=== PATIENT | female | born 1990 | race Caucasian/White ===

== ENCOUNTER 2024-02-18 21:39 | Emergency (ER) | payer OTHER, SELFPAY ==
--- NOTE | 2024-02-18 21:44 | DI.RAD.S_ITS ---
PROCEDURE: XR HAND RT MIN 3V INDICATIONS: bite by dog with multiple lacerations TECHNIQUE: 3 views of the hand(s) acquired. COMPARISON: None. FINDINGS: Bones: No fractures or dislocations. Carpal bones are normally aligned. No suspicious bony lesions. Soft tissues: No suspicious soft tissue calcifications. Tiny soft tissue laceration seen between the 3rd and 4th digits and adjacent to the 5th digit without underlying radiodense foreign body. IMPRESSION: No fracture or foreign body. Dictated by: Alessandra Stuart M.D. on 02/18/2024 at 23:11 Approved by: Alessandra Stuart M.D. on 02/18/2024 at 23:11
[2024-02-18 21:51] VITALS: BP 117/73; PULSE 86; RESP 17; TEMP 36.6; O2SAT 100
--- NOTE | 2024-02-18 23:18 | ED_ITS ---
HPI - Animal Bite General Chief Complaint: Animal Bite Stated Complaint: dog bite to right hand Time Seen by Provider: 02/18/24 23:09 Source: patient Mode of arrival: Ambulatory History of Present Illness HPI narrative: Patient is a 34-year-old healthy female who presents today with right hand dog bite. She reports that she was breaking up her dogs. He is right-hand dominant she has a cut between 3rd and 4th finger and the side of the 5th finger on the palm. She has a little bit and numbness no weakness. Dogs are up-to-date on all other immunizations Related Data Previous Rx's Medication Instructions Recorded amoxicillin 875 mg-potassium 1 tab PO BID #14 tabs 02/18/24 clavulanate 125 mg tablet Allergies Allergy/AdvReac Type Severity Reaction Status Date / Time No Known Drug Allergies Allergy Verified 02/18/24 21:50 Patient History Social History Smoking Status: Never smoker Smoking Status: Never smoker alcohol intake frequency: a few times a week Substance Use Type: does not use Exam Initial Vital Signs Initial Vital Signs: Vital Signs Temperature 97.8 F 02/18/24 21:51 Pulse Rate 86 02/18/24 21:51 Respiratory Rate 17 02/18/24 21:51 Blood Pressure 117/73 02/18/24 21:51 Pulse Oximetry 100 02/18/24 21:51 Oxygen Delivery Method Room Air 02/18/24 21:51 GENERAL: Well-appearing, well-nourished and in no acute distress. CARDIOVASCULAR: peripheral pulses in tact, cap refill <2 sec RESPIRATORY: No respiratory distress, speaks in full sentences without difficulty EXTREMITIES: Normal range of motion, no clubbing or edema. Neurovascularly intact NEUROLOGICAL: Cranial nerves II through XII grossly intact. Normal gait and speech. SKIN: Right hand 2 cm laceration between 3rd and 4th digit on the dorsal side 3 cm laceration on the 5th digit palm around the MCP. Neurovascularly intact Procedures Laceration Repair Laceration 1: Site: hand (3and 4th finger laceration) Size (cm): 2 Depth: simple, single layer Local Anesthetic: lidocaine 1% Amount of anesthesia used (mL): 2 Pre-repair: wound explored, irrigated extensively and deep structures intact Skin layer closed with: nylon Skin layer suture size: 5-0 Number of sutures: 2 Laceration 2: Site: hand (5th palm laceration) Size (cm): 3 Description: linear Depth: simple, single layer Local Anesthetic: lidocaine 1% Amount of anesthesia used (mL): 3 Pre-repair: wound explored, irrigated extensively and deep structures intact Skin layer closed with: nylon Skin layer suture size: 5-0 Number of sutures: 3 Technique: simple, interrupted Course Orders Ordered: ED Orders 02/18/24 21:44 XR hand RT min 3V Stat Discontinued Medications Amoxicillin/Clavulanate Potassium (Amoxicillin/Clav 875/125 Mg) 1 tab PO NOW ONE Stop: 02/18/24 23:53 Last Admin: 02/18/24 23:57 Dose: 1 tab Documented By: AB Vital Signs Vital signs: Vital Signs - 8 hr 02/18/24 21:51 02/19/24 00:02 Temperature 97.8 F Pulse Rate 86 88 Respiratory Rate 17 15 Blood Pressure 117/73 108/73 Pulse Oximetry 100 99 Oxygen Delivery Method Room Air Room Air MDM - Animal Bite Imaging Data Extremity x-ray #1: Radiologist's Impression: PROCEDURE: XR HAND RT MIN 3V INDICATIONS: bite by dog with multiple lacerations TECHNIQUE: 3 views of the hand(s) acquired. COMPARISON: None. FINDINGS: Bones: No fractures or dislocations. Carpal bones are normally aligned. No suspicious bony lesions. Soft tissues: No suspicious soft tissue calcifications. Tiny soft tissue laceration seen between the 3rd and 4th digits and adjacent to the 5th digit without underlying radiodense foreign body. IMPRESSION: No fracture or foreign body. Dictated by: Alessandra Stuart M.D. on 02/18/2024 at 23:11 [facility] Narrative Medical decision making narrative: Patient 34-year-old female right-hand dominant presents today with right hand injury. Breaking up her own dogs fighting. She has 2 lacerations with adipose tissue exposure. X-ray has been reviewed by me and is negative for any foreign body. Lacerations or easily repaired loosely. She is given 1st dose of antibiotics and instructions. Discharge Plan Departure Patient Disposition: Home Clinical Impression: Dog bite Instructions: DI for Dog Bite Activity Restrictions/Additional Instructions: *You have been diagnosed with dog bite *What to do: At this time sutures will need to be removed in about 7-10 days. Please monitor for infection. Keep clean and dry with soap and water. May bathe and shower normally. Expect hand to be very sore with the next few days elevate and ice as often as possible to help prevent swelling. *Continue to take medications as directed Augmentin 875 mg twice a day for 7 days Tylenol Motrin as needed for pain *Follow up with your primary care provider in 2-3 days or call [phone] *Return to ER if you should have increasing pain swelling redness streaking fever or any new, worsening or concerning symptoms Prescriptions: New amoxicillin-pot clavulanate 875-125 mg tablet 1 tab PO BID Qty: 14 0RF Stand Alone Forms: Patient Portal/API
[2024-02-18] MEDS: AMOXICILLIN/CLAV 875/125 MG 1 TAB PO (23:57)
[2024-02-19 00:02] VITALS: BP 108/73; PULSE 88; RESP 15; O2SAT 99
== END 2024-02-19 00:03 | disposition home or self-care (01) ==
PROVIDERS: Emergency Provider Emergency Medicine
DX: S61.451A Open bite of right hand, initial encounter (principal); W54.0XXA Bitten by dog, initial encounter
CPT/HCPCS: 12002; 73130; 99283